=== PATIENT | female | born 1950 | race Caucasian/White ===

== ENCOUNTER 2016-06-25 17:41 | Emergency (ER) | payer MEDICARE, OTHER ==
[~2016-06-25 17:41] MED LIST: CHOL400T3 PO; CLON0.3T PO; CLONIDINE 0.3 MG PO; FENT1PAT11 TOPICAL; HYDR8TAB PO; KETAMINE NASAL; LEVO88TA3 PO; LOVA40TA PO; Lorazepam PO; MTH10T PO; MULT-1018 PO; NITR100 PO; PHEN-777 PO; SOMA350 PO
[2016-06-25 18:01] VITALS: BP 162/77; PULSE 47; RESP 20; O2SAT 100
--- NOTE | 2016-06-25 18:41 | ED.REPORT ---
HPI-General Illness Date of Service Jun 25, 2016 ED Provider: Tyshawn Rod PA-C [place] is a 65-year-old female with a history of chronic pain, complex regional pain syndrome, interstitial cystitis and anxiety who presents via EMS with chief complaint of bilateral leg pain which ascends up into her lower abdomen. She believes that the pain was started 2 weeks ago when her dentist used "the wrong anesthesia" during a dental procedure. She believes this exacerbated her complex regional pain syndrome. She describes pain primarily in her left leg which is associated with multicolored bumps that have resolved at presentation. She reports using methadone, lorazepam, ketamine, course of Toradol, hydromorphone and phenazopyridine for pain at home. States that she is out of her methadone. States that the pain is bad enough that she cannot walk downstairs to get into her car. History of a neurostimulator implanted in her lumbar spine in 2010 which is nonfunctional. Denies fever, DM, HIV, organ transplant, immunosuppression, recent surgery, recent infection and IV drug use. Denies bowel/bladder dysfunction and saddle anesthesia. Denies vomiting, diarrhea, urinary symptoms, chest pain, palpitations, difficulty breathing, shortness of breath, cough. Nursing Notes Stated Complaint: ABDOMINAL PAIN Chief Complaint: Female Abdominal Pain Nursing Notes Reviewed: Yes Allergies: Coded Allergies: pregabalin (Verified Allergy, Intermediate, Extrapyramidal Symptoms, ) words come out all jumbled Sulfa (Sulfonamide Antibiotics) (Verified Allergy, Unknown, 12/14/15) phenobarbital (Verified Adverse Reaction, Intermediate, 12/14/15) Scheduled Atenolol (Atenolol) 25 Mg Tablet 25 MG PO DAILY Pt holds if HR < 90 BPM or low BP Cephalexin (Keflex) 500 Mg Capsule 500 MG PO QID Cholecalciferol (Vitamin D3) (Vitamin D3) 400 Unit Tab.chew 400 UNIT PO DAILY Clonidine (Clonidine) 0.3 Mg Tablet 0.3 MG PO TID Estradiol (Estrace) 42.5 Gm Cream.appl 1 G VG 3x/week Fentanyl 100 mcg/hr Patch (Fentanyl 100 mcg/hr Patch) 1 Each Patch.td72 1 PATCH TOPICAL Q2DAY Levothyroxine (Synthroid) 88 Mcg Tablet 88 MCG PO QAM Lorazepam (Lorazepam) 2 Mg Tablet 2 MG PO QID 0400, 1000, 1600, 2200 Methadone (Methadone) 10 Mg Tab 10 MG PO QID Multivitamin (Multi Vitamin Daily) 1 Each Tablet 1 EACH PO DAILY Scheduled PRN Hydromorphone (Hydromorphone) 8 Mg Tablet 8 MG PO Q6H PRN PRN Pain Ketamine HCl (Ketalar) 100 Mg/1 Ml Vial 1-2 SPRAY NASAL [id number] PRN PRN For Pain NTE 32 puffs/24 hrs Magnesium Hydroxide (Pedia-Lax) 400 Mg Tab.chew 400 MG PO DAILY PRN PRN For Constipation General Time Seen by MD: 17:58 Chief Complaint Other (bilateral leg pain.) Past Medical History Past Medical History Notes: PCP Tristan Milan Past Medical History 1. Chronic pain syndrome with narcotic habituation. 2. Interstitial cystitis. 3. Complex regional pain syndrome. 4. Generalized anxiety disorder. 5. Hypothyroid, on replacement. Reports: Hypertension Past Surgical History cholecystectomy in June 2014. Left wrist surgery. Right shoulder surgery. Implant of spinal cord stimulator in July 2009. Right hip surgery June 2015 Reports: Cholecystectomy Smoking History Never Smoker Social History Alcohol Use: Denies alcohol use Drug Use: Denies drug use Other Social History: Occupation no work or school 01/2016 Ambulatory Status Independent Review of Systems General: Denies fever, chills, malaise. HEENT: Denies congestion, headache, sore throat. Respiratory: Denies dyspnea, cough, shortness of breath, wheezing. Cardiovascular: Denies chest pain, palpitations. Gastrointestinal: Admits abdominal pain. Denies vomiting, diarrhea. Genitourinary: Denies frequency, urgency, dysuria, hematuria. Otherwise as noted in HPI. Physical Exam General: Well appearing, well developed, well nourished, no acute distress. Head: Atraumatic, normocephalic. Eyes: No scleral icterus or injection. No discharge. Vision grossly intact. ENT: Voice clear, hearing grossly intact. Respiratory: Regular rate and rhythm. Breath sounds present, clear to auscultation and equal bilaterally. No respiratory distress. No increased work of breathing, speaks in complete sentences. Cardiovascular: Regular rate and rhythm, without murmur, gallop or rub. No pedal edema. Gastrointestinal: Abdomen flat and non-tender without guarding or rebound. Bowel sounds normoactive. Hips: Nontender, full range of motion. Knees: Nontender, full range of motion Legs: Strength and sensation grossly intact. No pitting edema, calves roughly equal in diameter, nontender. Feet: Skin is slightly lynette in appearance and appears tense. DP and PT pulses appreciated bilaterally. Brisk capillary refill. Skin: Warm and dry. Neurological: Grossly nonfocal. Psychological: Alert and oriented. Speech appropriate, linear and logical. Behavior appropriate. Vital Signs Vital Signs Date Time Temp Pulse Resp B/P Pulse Ox O2 Delivery O2 Flow Rate FiO2 06/25/16 20:34 36.6 49 14 180/78 98 Room Air 06/25/16 18:01 36.8 47 20 162/77 100 Room Air Initial VS: Reviewed, Vital signs abnormal (bradycardia) Interpretation & Diagnostics Lab Results Interpretation Result Diagram: 06/25/16191806/25/161918 Test 06/25/16 19:19 06/25/16 20:15 White Blood Count 10.3th/mm3 (3.8-10.1) Red Blood Count 4.79mil/mm3 (3.90-5.20) Hemoglobin 14.1g/dL (12.0-15.6) Hematocrit 42.0% (35.0-46.0) Mean Corpuscular Volume 87.7fL (81-100) Mean Corpuscular Hemoglobin 29.4pg (27.0-35.0) Mean Corpuscular Hemoglobin Concent 33.6% (32.0-37.0) Red Cell Distribution Width 13.4% (12.3-15.4) Platelet Count 268bil/L (150-400) Neutrophils (%) (Auto) 59.3% (40-74) Lymphocytes (%) (Auto) 26.5% (14-46) Monocytes (%) (Auto) 9.2% (4-12) Eosinophils (%) (Auto) 4.5% (0-5) Basophils (%) (Auto) 0.4% (0-3) Sodium Level 137mEq/L (134-144) Potassium Level 4.4mEq/L (3.5-5.2) Chloride Level 97mEq/L (97-108) Carbon Dioxide Level 27mmol/L (18-29) Blood Urea Nitrogen 11mg/dL (8-27) Creatinine 0.91mg/dL (0.57-1.00) Estimat Glomerular Filtration Rate 89mL/min (>59) Glucose Level 116mg/dL (60-99) Calcium Level 9.4mg/dL (8.5-10.1) Total Bilirubin 0.3mg/dL (0.0-1.2) Aspartate Amino Transf (AST/SGOT) 59U/L (0-50) Alanine Aminotransferase (ALT/SGPT) 105U/L (0-32) Alkaline Phosphatase 734U/L (25-165) Total Protein 7.3g/dL (6.4-8.4) Albumin 3.8g/dL (3.4-5.0) Hold Sebastian Top Tube Received (Received) Urine Color Yellow (YELLOW) Urine Appearance Cloudy (CLEAR,HAZY) Urine pH 8.5 (5.0-8.0) Urine Specific [place] 1.020 (1.003-1.035) Urine Protein 30mg/dL (NEG,TRACE) Urine Glucose (UA) Negativemg/dL (NEGATIVE) Urine Ketones Negativemg/dL (NEGATIVE) Urine Occult Blood Trace (NEGATIVE) Urine Nitrite Negative (NEGATIVE) Urine Bilirubin Negative (NEGATIVE) Urine Urobilinogen Normalmg/dL (NORMAL) Urine Leukocyte Esterase Moderate (NEGATIVE) Urine RBC 0-2/hpf (0-2) Urine WBC >50/hpf (0-5) Urine Epithelial Cells Moderate/hpf (NONE-MOD) Urine Crystals None seen (NONE SEEN) Urine Bacteria Few/hpf (NONE-FEW) Urine Hyaline Casts None/lpf (NONE) Urine Granular Casts None seen (NONE SEEN) Urine Waxy Casts None seen (NONE SEEN) Urine Red Blood Cell Casts None seen (NONE SEEN) Urine White Blood Cell Casts None seen (NONE SEEN) Urine Mucus None seen (None Seen) Urine Trichomonas None seen (NONE SEEN) Urine Yeast None (NONE SEEN) Urinalysis Comment None Urine Culture Reflexed Indicated Re-Eval/Medical Decision Med Decision/Clinical Course 64-year-old female with a history of complex regional pain syndrome presents with bilateral leg pain dressing to her abdomen. She reports that she is out of her methadone. Her pain is bad enough that she cannot walk downstairs and get into her car. History is reassuring this is unlikely to be an epidural abscess or subdural hematoma. No red flag symptoms of cauda equina syndrome. No symptoms of DVT. Physical examination is otherwise reassuring with no CVA tenderness or spinous process tenderness. Strength and sensation are intact in lower limbs. Patient ambulates at baseline, limited by pain in her feet rather than weakness. She does have mild lower abdominal tenderness without guarding or rebound. Urinalysis is suggestive of a urinary tract infection. I do not believe the pain in her legs is caused by immediately dangerous condition. The pain in her abdomen is likely due to her urinary tract infection and less likely due to ovarian torsion, ovarian cyst, PID. I believe she is stable and safe for discharge home. I provided an injection of IM ceftriaxone as well as a prescription for Keflex to be taken 4 times a day for one week. Advise primary care follow-up and provided emergent return precautions. She discussed this with the patient who understands and agrees with the plan. Discharge & Departure Primary Impression: Leg pain, bilateral Additional Impressions: Urinary tract infection Urinary tract infection type: acute cystitis Hematuria presence: without hematuria Qualified Code: N30.00 - Acute cystitis without hematuria Elevated blood pressure Disposition: Home Discharge Condition All VS Reviewed: Yes Condition: Stable Patient Instructions: Urinary Tract Infection in Women (ED) Additional Instructions: Evaluation for leg and abdominal pain in the emergency department. History and physical are reassuring that her leg pains unlikely to be due to a dangerous cause such as pinched nerves for infection and your spine. Her blood tests appear to be relatively normal for you, and her urinalysis shows a urinary tract infection. It does not appear this infection is progressed to her kidneys at this point. He will be given a shot of antibiotics in the emergency department tonight. I will also give a prescription for Keflex to be taken 4 times a day for the next week to treat the urinary tract infection. Follow-up with your primary care provider as soon as possible to get back on your pain medication regimen and discuss your high blood pressure. Return to emergency department for new or worsening symptoms including loss of bowel/bladder control, numbness between your legs, fever. Referrals: Tristan Milan MD (PCP) EDSupervising Provider for APC: Nona Lua MD copies to: Tristan Milan MD, Seth PA-C Jun 25, 2016 18:41
[2016-06-25] MEDS ORDERED: Ketorolac 30 mg/mL 2 mL Inj IM ONE (18:45)
[2016-06-25] MEDS ORDERED: LORA2TAB PO (18:58)
[2016-06-25] MEDS ORDERED: MAGN400T26 PO (19:00)
[2016-06-25] MEDS ORDERED: ATEN25TA PO (19:02)
[2016-06-25] MEDS ORDERED: ESTR42.52 VG (19:02)
[2016-06-25] MEDS ORDERED: [UNRECOGNIZED DRUG - CODE] NASAL (19:05)
[2016-06-25 19:26] LABS: BASOPHILS % (AUTO) 0.4 % (0-3); EOSINOPHILS % (AUTO) 4.5 % (0-5); MONOCYTES % (AUTO) 9.2 % (4-12); Mean Corpuscular Hemoglobin 29.4 pg (27.0-35.0); Mean Corpuscular Volume 87.7 fL (81-100); NEUTROPHILS % (AUTO) 59.3 % (40-74); Platelet Count 268 bil/L (150-400)
[2016-06-25 20:34] VITALS: BP 180/78; PULSE 49; RESP 14; O2SAT 98
[2016-06-25 20:37] LABS: APPEARANCE,URINE CLOUDY (CLEAR,HAZY); COLOR,URINE YELLOW (YELLOW); PH,URINE 8.5 (5.0-8.0)
[2016-06-25 20:38] LABS: OCCULT BLOOD,URINE TRACE (NEGATIVE); UROBILINOGEN,URINE NORMAL (NORMAL)
[2016-06-25] MEDS ORDERED: cefTRIAXone Inj 500 MG, Lidocaine PF 1% Inj 1 ML in Syringe 1 EACH IM ONE (20:55)
[2016-06-25] MEDS ORDERED: CEPH-512 PO (21:08)
[2016-06-25] MEDS ORDERED: CEFTRIAXONE IM ONE (21:30)
[2016-06-25] MEDS ORDERED: LIDOCAINE 1% IM ONE (21:30)
[2016-06-25 22:02] VITALS: BP 11/80; PULSE 68; RESP 20; O2SAT 98
[2016-06-25 22:12] VITALS: BP_SYST 11; BP_SYST 111; BP_DIAS 80; PULSE 68; RESP 20; O2SAT 98
== END 2016-06-25 22:13 | disposition home or self-care (01) ==
LOC: EDBD 17:41 → EDUNIT# 17:41 → SED 17:41
DX: M79.661 Pain in right lower leg (principal); M79.662 Pain in left lower leg; N30.00 Acute cystitis without hematuria; I10 Essential (primary) hypertension; E03.9 Hypothyroidism, unspecified; Z79.818 Long term (current) use of other agents affecting estrogen receptors and estrogen levels; Z88.2 Allergy status to sulfonamides; Z88.5 Allergy status to narcotic agent
CPT/HCPCS: 36415; 80053; 81000; 85025; 87086; 87088; 96372; 99284; J0696; J1885

== ENCOUNTER 2016-06-27 06:31 | Inpatient (IN) | payer MEDICARE, OTHER ==
[2016-06-27] VITALS (9 sets, daily range): BP systolic 90–183; BP diastolic 56–74; PULSE 43–98; RESP 12–16; O2SAT 95–100
[~2016-06-27] VITALS: Ht 167.6 cm; Wt 71.0 kg
--- NOTE | 2016-06-27 06:28 | ED.REPORT ---
HPI-General Illness Date of Service Jun 27, 2016 ED Provider: Ronnie Arnold DO 65 year old female with a history of complex regional pain syndrome with narcotic habituation presents to the ER via EMS due to acute on chronic bilateral lower extremity pain. Associated symptoms include frontal headache, and new onset abdominal pain. She denies bowel or urinary incontinence. Patient was seen here in the ER two days ago for leg pain and placed on Keflex for suspected UTI. History is limited due to patient's current mental status. Nursing Notes Stated Complaint: CHRONIC SEVERE PAIN Nursing Notes Reviewed: Yes Allergies: Coded Allergies: pregabalin (Verified Allergy, Intermediate, Extrapyramidal Symptoms, ) words come out all jumbled Sulfa (Sulfonamide Antibiotics) (Verified Allergy, Unknown, 06/27/16) phenobarbital (Verified Adverse Reaction, Intermediate, 12/14/15) Scheduled Atenolol (Atenolol) 25 Mg Tablet 25 MG PO DAILY Pt holds if HR < 90 BPM or low BP Cholecalciferol (Vitamin D3) (Vitamin D3) 400 Unit Tab.chew 400 UNIT PO DAILY Clonidine (Clonidine) 0.3 Mg Tablet 0.3 MG PO TID Estradiol (Estrace) 42.5 Gm Cream.appl 1 G VG 3x/week Fentanyl 100 mcg/hr Patch (Fentanyl 100 mcg/hr Patch) 1 Each Patch.td72 1 PATCH TOPICAL Q2DAY Levothyroxine (Synthroid) 88 Mcg Tablet 88 MCG PO QAM Methadone (Methadone) 10 Mg Tab 20 MG PO BID Multivitamin (Multi Vitamin Daily) 1 Each Tablet 1 EACH PO DAILY Scheduled PRN Hydromorphone (Hydromorphone) 8 Mg Tablet 8 MG PO TID PRN PRN Pain Ketamine HCl (Ketalar) 100 Mg/1 Ml Vial 1-2 SPRAY NASAL [id number] PRN PRN For Pain NTE 32 puffs/24 hrs Lorazepam (Lorazepam) 2 Mg Tablet 2 MG PO 3-4 times a day PRN PRN For Anxiety 0400, 1000, 1600, 2200 Magnesium Hydroxide (Rodgers' Milk of Magnesia) 311 Mg Tab.chew 311 MG PO PRN For Constipation General Time Seen by MD: 06:36 Chief Complaint Other (Bilateral Lower Extremity Pain) Hx Obtained From: Patient Arrived By: Ambulance Sudden in Onset?: No Symptom Duration: Constant Location: : Leg left: Leg right Quality: Painful Severity: Current: Moderate Severity: Maximum: Moderate Associated with: Reports: Abdominal pain, Headache Additional Notes: Denies Incontinence Similar Sx Previous: Yes Past Medical History Past Medical History Notes: PCP Tristan Milan Past Medical History 1. Chronic pain syndrome with narcotic habituation. 2. Interstitial cystitis. 3. Complex regional pain syndrome. 4. Generalized anxiety disorder. 5. Hypothyroid, on replacement. Reports: Hypertension Past Surgical History cholecystectomy in June 2014. Left wrist surgery. Right shoulder surgery. Implant of spinal cord stimulator in July 2009. Right hip surgery June 2015 Reports: Cholecystectomy Smoking History Never Smoker Social History Alcohol Use: Denies alcohol use Drug Use: Denies drug use Other Social History: Occupation no work or school 01/2016 Ambulatory Status Independent Review of Systems ROS is limited due to patient's mental status. Full Review of Systems GI: Reports: Abdominal pain Musculoskeletal: Reports: Extremity pain (Bilateral Lower) Neurologic: Reports: Confusion, Headache, Denies: Bladder dysfunction, Bowel dysfunction Complete sys rev & neg: except as marked. Physical Exam Vital Signs Vital Signs Date Time Temp Pulse Resp B/P Pulse Ox O2 Delivery O2 Flow Rate FiO2 06/27/16 12:47 36.9 92 16 120/56 99 Room Air 06/27/16 09:15 57 14 164/66 99 Room Air 06/27/16 07:39 37.4 56 16 183/74 100 Room Air 06/27/16 06:39 37.1 56 12 163/72 100 Room Air Initial VS: Reviewed Head / Eyes: Atraumatic, Normocephalic Neck: Supple, Non-tender, Full range of motion Respiratory: Breath sounds normal, Clear to auscultation, No respiratory distress Abdomen / GI: Soft, Non-tender, No guarding, No rebound, No distention Skin: Warm, Dry, No cyanosis General/Constitutional: Awake, Alert, Well developed Cardiovascular: Heart rate NL, Regular rhythm, Heart sounds NL, Cap refill not delayed, Peripheral circulation NL Lower Extremity / Pelvis / MS: Atraumatic, Full range of motion, No deformity, Neurologic intact, Vascular intact 2+ DP pulses bilaterally. Capillary refill <2 seconds. Neurologic: Speech NL Mental Status: Positive: Confused, Disoriented to person, Disoriented to place , Disoriented to time Speaking gibberish. Inappropriate responses to questions. NIH Stroke Scale Level of Consciousness: Alert and responsive (0) Ask Month & Age: Both questions right (0) Open/Close Eyes/Hand Meter/Relay Craftsman: Performs both tasks (0) Horizontal EO Movements: None (0) Visual Roberts: No visual loss (0) Facial Palsy: Normal symmetry (0) Right Arm Motor Drift (10s): No drift 10 sec (0) Left Arm Motor Drift (10s): No drift 10 sec (0) Right Leg Motor Drift (5s): No drift 5 sec (0) Left Leg Motor Drift (5s): No drift 5 sec (0) Limb Ataxia FNF/Heel-Malave: No ataxia (0) Sensation (Arms/Legs/Face): No sensory loss (0) Language Aphasia: Loss fluency ID matls (1) (Wernicke's Aphasia, word salad) Dysarthria: No dysarthria, normal (0) Extinction/Inattention: No exctinct/inattent (0) NIHSS Score: 1 Time NIHSS Performed: 08:58 Date NIHSS Performed: Jun 27, 2016 Interpretation & Diagnostics Lab Results Interpretation Result Diagram: 06/27/16 0720 06/27/16 0720 Test 06/27/16 07:20 06/27/16 07:24 White Blood Count 9.8th/mm3 (3.8-10.1) Red Blood Count 4.88mil/mm3 (3.90-5.20) Hemoglobin 14.3g/dL (12.0-15.6) Hematocrit 42.4% (35.0-46.0) Mean Corpuscular Volume 86.9fL (81-100) Mean Corpuscular Hemoglobin 29.3pg (27.0-35.0) Mean Corpuscular Hemoglobin Concent 33.7% (32.0-37.0) Red Cell Distribution Width 13.3% (12.3-15.4) Platelet Count 274bil/L (150-400) Neutrophils (%) (Auto) 69.1% (40-74) Lymphocytes (%) (Auto) 20.6% (14-46) Monocytes (%) (Auto) 6.3% (4-12) Eosinophils (%) (Auto) 3.6% (0-5) Basophils (%) (Auto) 0.3% (0-3) Prothrombin Time 10.6sec (8.1-12.5) Prothromb Time International Ratio 0.99ratio Sodium Level 137mEq/L (134-144) Potassium Level 4.7mEq/L (3.5-5.2) Chloride Level 96mEq/L (97-108) Carbon Dioxide Level 24mmol/L (18-29) Blood Urea Nitrogen 18mg/dL (8-27) Creatinine 0.88mg/dL (0.57-1.00) Estimat Glomerular Filtration Rate 93mL/min (>59) Glucose Level 114mg/dL (60-99) Lactic Acid Level 1.6mmol/L (0.4-2.0) Calcium Level 9.9mg/dL (8.5-10.1) Magnesium Level 1.7mg/dL (1.6-2.6) Total Bilirubin 0.4mg/dL (0.0-1.2) Aspartate Amino Transf (AST/SGOT) 46U/L (0-50) Alanine Aminotransferase (ALT/SGPT) 81U/L (0-32) Alkaline Phosphatase 762U/L (25-165) Total Protein 7.9g/dL (6.4-8.4) Albumin 4.2g/dL (3.4-5.0) Lipase 16U/L (13-60) Alcohols < 10mg/dL (0-10) Urine Color Yellow (YELLOW) Urine Appearance Turbid (CLEAR,HAZY) Urine pH 7.0 (5.0-8.0) Urine Specific [place] 1.020 (1.003-1.035) Urine Protein 30mg/dL (NEG,TRACE) Urine Glucose (UA) Negativemg/dL (NEGATIVE) Urine Ketones Negativemg/dL (NEGATIVE) Urine Occult Blood Negative (NEGATIVE) Urine Nitrite Negative (NEGATIVE) Urine Bilirubin Negative (NEGATIVE) Urine Urobilinogen Normalmg/dL (NORMAL) Urine Leukocyte Esterase Small (NEGATIVE) Urine RBC 3-10/hpf (0-2) Urine WBC 0-5/hpf (0-5) Urine Epithelial Cells Many/hpf (NONE-MOD) Urine Crystals None seen (NONE SEEN) Urine Bacteria Many/hpf (NONE-FEW) Urine Hyaline Casts None/lpf (NONE) Urine Granular Casts None seen (NONE SEEN) Urine Waxy Casts None seen (NONE SEEN) Urine Red Blood Cell Casts None seen (NONE SEEN) Urine White Blood Cell Casts None seen (NONE SEEN) Urine Mucus None seen (None Seen) Urine Trichomonas None seen (NONE SEEN) Urine Yeast None (NONE SEEN) Urinalysis Comment None Urine Culture Reflexed Indicated ECG Interpretation ECG Interpretation: Sinus rhythm, rate 60 Time: 07:31 Interpreted by: ED physician CT Head Interpretation IMPRESSION: 1. No acute intracranial process. 2. Mild atrophy and chronic microvascular ischemic changes. Dictated by: Pamela Palomares M.D. on 06/27/2016 at 12:24 Approved by: Pamela Palomares M.D. on 06/27/2016 at 12:24 Study: Head CT no contrast Interpretation / Wet Read by: Interpret - Radiologist CT Abd / Pelvis Interpretation IMPRESSION: 1. No acute process. No explanation for lower abdominal pain. 2. Appendix not seen. No evidence of appendicitis. Dictated by: Marina Vazquez M.D. on 06/27/2016 at 8:31 Approved by: Marina Vazquez M.D. on 06/27/2016 at 8:41 Study type: Abdominal CT IV contrast, Abdom CT oral contrast Interpretation / Wet Read by: Interpret - Radiologist Re-Eval/Medical Decision Med Decision/Clinical Course several days of wernickes aphasia of unclear etiology. Doubt infectious pathology. Question if this is polypharmacy or subacute stroke. We will plan to admit for observation and better clinical delineation of etiology. Source of Hx: Old records Time of Eval: 08:34 Patient Status: Pain improved Re-Evaluation/Progress Note: Patient is resting comfortably. Time of Eval: 08:58 Re-Evaluation/Progress Note: Completed NIH Stroke Scale. Time of Eval: 12:34 Re-Evaluation/Progress Note: Patient continues to have Wernicke's aphasia. Consultation #1: Call Returned at: 09:11 Note: I called patient's , Sherif Pérez, regarding why he sent her to the ER today. He states that the patient has been "using strange words that had no meaning", and that she has appeared confused for several days, worsening today. reports that the patient was recently started on a course of Keflex. He states that the patient continues to insist that "he's hurting her" when he is nowhere near her, and denies hitting his . Updated him on the patient's case and plan of care. Consultation #2: Referral / Consult Name: Della Finley DO Consulted With: Hospitalist Call Returned at: 12:49 High Lighter: Agrees with eval, Agrees with plan, Accepts admit Counseled Regarding: Diagnosis, Lab results, Need for admission Discharge & Departure Primary Impression: Altered level of consciousness Disposition: ADMITTED TO HOSPITAL Discharge Condition All VS Reviewed: Yes Condition: Stable Referrals: Tristan Milan MD (PCP) [place] Attestation Portions of this note were transcribed by Zaire Mathis. I, Dr. Arnold, personally performed the history, physical exam and medical decision-making; I reviewed and confirmed the accuracy of the information in the transcribed note. Signed by: Liseth Hanson, 06/27/2016 and 12:50 copies to: Tristan Milan MD, Timothy S DO Jun 27, 2016 06:28 ZAIRE MATHIS Jun 27, 2016 06:45
[~2016-06-27 06:31] MED LIST changes: +ATEN25TA PO; +CEPH-512 PO; -CLONIDINE 0.3 MG PO; +ESTR42.52 VG; -KETAMINE NASAL; +LORA2TAB PO; -LOVA40TA PO; -Lorazepam PO; +MAGN400T26 PO; -NITR100 PO; -PHEN-777 PO; -SOMA350 PO; +[UNRECOGNIZED DRUG - CODE] NASAL
[2016-06-27] MEDS ORDERED: 0.9% Sodium Chloride 1,000 ML IV ONE ×2 (06:59→17:30)
[2016-06-27] MEDS ORDERED: Ondansetron 2 mg/mL 2 mL Inj IVPUSH PRN ×2 (07:00→13:10)
[2016-06-27] MEDS ORDERED: Ketamine 10 mg/mL 20 mL Inj IV ONE (07:05)
[2016-06-27 07:33] LABS: BASOPHILS % (AUTO) 0.3 % (0-3); EOSINOPHILS % (AUTO) 3.6 % (0-5); MONOCYTES % (AUTO) 6.3 % (4-12); Mean Corpuscular Hemoglobin 29.3 pg (27.0-35.0); Mean Corpuscular Volume 86.9 fL (81-100); NEUTROPHILS % (AUTO) 69.1 % (40-74); Platelet Count 274 bil/L (150-400)
[2016-06-27] MEDS ORDERED: MAGN311T5 PO (07:37)
[2016-06-27 07:49] LABS: APPEARANCE,URINE TURBID (CLEAR,HAZY); COLOR,URINE YELLOW (YELLOW); OCCULT BLOOD,URINE NEGATIVE (NEGATIVE); UROBILINOGEN,URINE NORMAL (NORMAL)
[2016-06-27 07:59] LABS: Magnesium 1.7 mg/dL (1.6-2.6)
--- NOTE | 2016-06-27 08:43 | DRSVH ---
PROCEDURE: CT ABDOMEN AND PELVIS WITH CONTRAST ([id number]) INDICATIONS: lower abd pain TECHNIQUE: After the administration of oral and intravenous contrast, 5 mm thick sections acquired from the diap hragms to the symphysis. 5 mm thick coronal and sagittal reformats were performed. For radiation do se reduction, the following was used: automated exposure control, adjustment of mA and/or kV accordi ng to patient size. COMPARISON: [facility], CT, CT ABD PELVIS W CON, 04/25/2015, 20:48. [facility] al, CT, CT ABD PELVIS W CON, 11/11/2014, 17:34. FINDINGS: Image quality: Excellent. ABDOMEN: Lung bases: Lung bases are clear. Heart size is normal. Solid organs: Liver and spleen are normal in size and enhancement. Gallbladder is surgically absent . Biliary system is non-dilated. Pancreas enhances normally. No adrenal nodules. Kidneys are norm al in size and enhancement, without hydronephrosis. Peritoneum and bowel: Stomach, small bowel, and colon loops are normal in caliber and wall thickness . No free fluid or air. Appendix not seen. No evidence of appendicitis. Nodes and vessels: No retroperitoneal or mesenteric adenopathy. Aorta and inferior vena cava are no rmal in caliber. Miscellaneous: No ventral hernias. PELVIS: Genitourinary: The bladder is decompressed. Miscellaneous: No inguinal hernias or adenopathy. Bones: No suspicious bony lesions. ORIF of the right femoral neck has been performed. No acute verte bral body compression fractures. Moderate chronic T12 compression fracture. IMPRESSION: 1. No acute process. No explanation for lower abdominal pain. 2. Appendix not seen. No evidence of appendicitis. Dictated by: Marina Vazquez M.D. on 06/27/2016 at 8:31 Approved by: Marina Vazquez M.D. on 06/27/2016 at 8:41
--- NOTE | 2016-06-27 12:25 | DRSVH ---
PROCEDURE: CT BRAIN WITHOUT CONTRAST ([id number]) INDICATIONS: confusion TECHNIQUE: Noncontrast 4.5 mm thick angled axial sections acquired from the foramen magnum to the vertex, with c oronal reformats. COMPARISON: None. FINDINGS: Image quality: Excellent. CSF spaces: Basal cisterns are patent. No extra-axial fluid collections. The ventricles are symmet gabbie in size and shape. Brain: No intracranial bleeds or masses. There is cerebral volume loss for age, with resultant vent ricular and sulcal prominence. There are periventricular and deep white matter chronic small vessel ischemic changes. There is intracranial internal carotid artery atherosclerosis. Skull and face: Calvarium and visualized facial bones appear intact, without suspicious lesions. Sinuses: Visualized sinuses and mastoids are clear. IMPRESSION: 1. No acute intracranial process. 2. Mild atrophy and chronic microvascular ischemic changes. Dictated by: Pamela Palomares M.D. on 06/27/2016 at 12:24 Approved by: Pamela Palomares M.D. on 06/27/2016 at 12:24
[2016-06-27] MEDS ORDERED: Alum-Mag Hydrox-Simeth 30 mL Suspension PO PRN ×2 (13:10→13:45)
[2016-06-27] MEDS ORDERED: Polyethylene Glycol (PEG) 17 Gm Powder PO PRN (13:45)
[2016-06-27 13:57] LABS: INR 0.99 ratio
--- NOTE | 2016-06-27 14:10 | NUR ---
ADMIT Patient received from the ED via a wheelchair. Patient is alert and oriented to person only. Does not follow all instructions. Equal hand knitting supervisor. Via FELDT scale patients pain level is 0/10. Denies nausea. No emesis noted. Denies SOB. Coleman alarm placed on for safety. Patient placed on tele. Care continues.
[2016-06-27] MEDS: 0.9% Sodium Chloride 1,000 ML IV SCH ×2 (14:21→23:09)
--- NOTE | 2016-06-27 15:30 | NUR ---
MD NOTIFICATION Patient is on remote tele. Per director television news patient is on sinus emerald; HR-40's. SBP-120's. No complaints voiced at this time. Dr. Finley made aware via cookpaging. Will continue to monitor.
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
--- NOTE | 2016-06-27 16:04 | NUR ---
Evaluation completed. Please go to "Notes" then click on "Assessments and Notes" (bottom left corner of screen). Then select appropriate discipline tab on top of screen.
--- NOTE | 2016-06-27 17:27 | DRSVH ---
[facility] [address] [place] [address] Echocardiogram Report Name: ROXANNA SINGH EStudy Date: 06/27/2016 Height: 67 in Hospital Exam Location: [facility] Weight: 135 lb Gender: Female BSA: 1.7 m2 : 1950 Age: 65 yrs BP: 120/56 m mHg Reason For Study: TIA Performed By: Soumya Neri Referring Physician: HOSPITALIST [facility] Interpretation Summary The left ventricle is normal in size. The ejection fraction is estimated to be 65-70%. There is no LV thrombus. The right ventricle is normal in size, thickness and function. There is mild mitral regurgitation. There is mild to moderate aortic regurgitation. There is mild tricuspid regurgitation. The right ventricular systolic pressure is estimated at 37 mmHg assuming a right atrial pressure of 3 mm Hg. Procedure: A two-dimensional transthoracic echocardiogram with color flow and Doppler was performed. The study quality was technically good. Todays echo is compared with images from an outside facility dated 07-04-14. The patient was in normal sinus rhythm during the exam. The heart rate ranged between 45-63 bpm during the study. Left Ventricle: The left ventricle is normal in size. There is normal left ventricular wall thickness. There is no thrombus. The ejection fraction is estimated to be 65-70%. There are no focal wall motion abnormalities. Spectral Doppler of the mitral valve shows a normal E/A wave ratio. The E/E' ratio is abnormal. Right Ventricle: The right ventricle is normal in size, thickness and function. Atria: The left atrial size is normal. Right atrial size is normal. The interatrial septum is intact with no evidence for an atrial septal defect. Mitral Valve: There is mild mitral annular calcification. The mitral valve leaflets are slightly calcified. There is mild mitral regurgitation. Aortic Valve: The aortic valve is trileaflet. The aortic valve opens well. The aortic valve is slightly calcified. There is mild to moderate aortic regurgitation. Tricuspid Valve: The tricuspid valve is normal. There is mild tricuspid regurgitation. The right ventricular systolic pressure is estimated at 37 mmHg assuming a right atrial pressure of 3 mm Hg. Pulmonic Valve: The pulmonic valve is not well seen, but is grossly normal. There is trace pulmonic regurgitation. Great Vessels: The aortic root is normal size. There is aortic root sclerosis/calcification. The aortic arch is normal in size. The IVC is of normal diameter and collapses greater than 50% with a sniff. This suggests a low right atrial pressure of 3 mm Hg. Pericardium/ Pleura There is no pericardial effusion. There is no pleural effusion. MMode/2D Measurements & Calculations LVIDd: 4.2 cm LA dimension: 3.2 cm RA long axis Ao root diam LVIDs: 2.3 cm FS: 44.7 % LA A2 area: 18.6 cm RA area Aortic Jxn: 2.3 cm IVSd: 0.68 cm LA A4 area: 17.8 cm Ao Arch Diam (Prox LVPWd: 0.75 cm LA length (vol) : 13.6 cm Trans): 2.5 cm RA vol LA vol: 58.5 ml : 35.0 ml LA vol index RA : 20.5 mm/ RVDd major IVC diam: 1.8 cm : 4.8 cm LV phan. diameter/BSA LV sys. diameter/BSA RVD1 (basal) RVD2 (mid): 2.5 cm (cm/m^2): 2.5 (cm/m^2): 1.4 Doppler Measurements & Calculations Ao V2 max MV E max kelvin MV E/A: 1.1 TR max kelvin : 141.0 cm/sec : 78.3 cm/sec Med Peak E' Kelvin : 292.5 cm/sec Ao max P.0 mmHg MV A max kelvin TR max PG Ao mean P.7 mmH.4 cm/sec E/E' med: 12.8 : 34.2 mmHg LVOT Max Kelvin MV P1/2t: 108.6 msecLat Peak E' Kelvin PA Accel Time : 86.2 cm/sec : 0.15 sec sev ratio: 0.75 E/E' lat: 14.3 AI P1/2t: 754.0 msec E/e' average: 13.6 AI dec slope MV A dur: 0.13 sec : 168.8 cm/s2c MV dec time MV P1/2t max kelvin Ao V2 mean LV V1 max PG : 0.36 sec : 88.8 cm/sec Ao V2 VTI: 34.7 cm LV V1 VTI: 25.9 cm MVA(P1/2t): 2.0 cm2 Reading Physician:JALEN
--- NOTE | 2016-06-27 17:29 | NUR ---
HR/MD NOTIFICATION Per quality technician patients HR dropped X 2 to the 30's. HR is in the 40's at this time. Patient is sinus emerald with HR in the 40's. No ectopies. No complaints voiced at this time. No change in mentation. Dr. Finley was made aware. New orders for IV NS 1000 X 1 bolus received. NS infused at this time. Will continue to monitor. Fentanyl patched d/cd by Nadia Delatorre RN. Addendum: 06/27/16 at 1933 by FILOMENA DU RN HR HR-50-60's at this time.
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
[2016-06-28] VITALS (8 sets, daily range): BP systolic 107–171; BP diastolic 69–81; PULSE 50–73; RESP 16–20; O2SAT 98–100
[2016-06-28] MEDS: 0.9% Sodium Chloride 1,000 ML IV SCH ×2 (02:18→22:15)
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
[2016-06-28 08:17] LABS: Mean Corpuscular Hemoglobin 29.1 pg (27.0-35.0); Mean Corpuscular Volume 88.5 fL (81-100)
--- NOTE | 2016-06-28 08:48 | DRSVH ---
PROCEDURE: CT ANGIO HEAD AND NECK (P) INDICATIONS: Stroke/TIA TECHNIQUE: Pre-contrast 4.5 mm thick sections acquired from the foramen magnum to the vertex. After the adminis tration of intravenous contrast, 1 mm thick sections acquired from the aortic arch through the [place]. Post-contrast 4.5 mm thick sections then re-acquired from the foramen magnum to the vert ex. 3-dimensional djrwxwx-auutyjsgy-lgoztznxne (MIP) and/or volume rendering reformats were acquired of the central intracranial vasculature and neck separately. For radiation dose reduction, the foll owing was used: automated exposure control, adjustment of mA and/or kV according to patient size. COMPARISON: None. FINDINGS: Image quality: Excellent. BRAIN: CSF spaces: Ventricles are normal in size and shape. Basal cisterns are patent. No extra-axial flu id collections. Brain: No midline shift. No intracranial bleeds or masses. Rodriguez-white matter interface appears int act. Skull and face: Calvarium and facial bones appear intact, without suspicious lesions. Orbits appear normal. Sinuses: Sinuses and mastoids are clear. HEAD CT ANGIOGRAPHY: Anterior circulation: Intracranial internal carotid arteries are normal in size and flow. The flow within the paired anterior cerebral arteries is normal and symmetric. The flow within the middle cer ebral arteries is normal and symmetric. The anterior communicating artery is seen. No aneurysms are seen. Posterior circulation: Visualized portions of the vertebral arteries demonstrate normal caliber, and join to form a normal appearing basilar artery. Flow within the posterior cerebral arteries is norm al and symmetric. No aneurysms are seen. NECK CT ANGIOGRAPHY: Carotid system: The great vessels demonstrate a conventional anatomy as they arise from the aortic a rch. The origins of the common carotid arteries appear patent. The common carotid arteries demonstr ate normal caliber and courses. The bifurcation regions are both widely patent. The internal caroti d arteries demonstrate normal calibers and courses. Posterior circulation: The origins of the vertebral arteries both appear widely patent. The more ceballos perior extracranial portions of both vertebral arteries also demonstrate normal courses and calibers. They join to form a normal appearing basilar artery. Soft tissues: Visualized neck soft tissues demonstrate no suspicious abnormalities. Bones: No suspicious bony lesions. Visualized cervical spine appears normally aligned. IMPRESSION: 1. No significant stenosis, nor thrombosis involving the vasculature of the head and neck. Dictated by: Marina Vazquez M.D. on 06/28/2016 at 8:43 Approved by: Marina Vazquez M.D. on 06/28/2016 at 8:47
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
--- NOTE | 2016-06-28 09:45 | NUR ---
SPINAL CORD STIMULATOR INFO: [employer] placed 06/14/10; Model: SC 1110-02; SERIAL NO.: [id number]; ID NO. [id number]. Addendum: 06/28/16 at 1313 by FILOMENA DU RN MRI Dr. Finley made aware RE: MRI being cancelled due to her stimulator.
--- NOTE | 2016-06-28 11:08 | NUR ---
Evaluation completed. Please go to "Notes" then click on "Assessments and Notes" (bottom left corner of screen). Then select appropriate discipline tab on top of screen.
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
--- NOTE | 2016-06-28 14:36 | NUR ---
ADAM explained and signed. Copy of ADMA and Medicare self administered medications information given to patient.
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
[2016-06-28] MEDS: Ondansetron 2 mg/mL 2 mL Inj IV PRN (17:44)
--- NOTE | 2016-06-28 19:06 | NUR ---
MENTATION/ACTIVITY Patient is alert and oriented to person, place and time. Answers questions appropriately. Via FELDT scale patients pain level is 0/10. She has not been complaining of pain. She complained of nausea. No emesis noted. Zofran 4 mg IVP administered. Patient stated that her nausea is a little better. Encouraged patient to increase oral intake. She has been able to ambulate in the hallway with SBA and the FWW. Patient complained of dizziness. SBP-140's. She is on remote tele. Per telephony engineer patient is on sinus rhythm at 60's at this time. US will be done tonight. Tolerated activity well. [employer] alarm is on for safety. Care endorsed to incoming RN. Addendum: 06/28/16 at 1914 by FILOMENA DU RN NAUSEA IV restarted RE: Complaints of nausea and poor PO intake. Patient is agreeable to this.
--- NOTE | 2016-06-28 19:27 | NUR ---
assumed care at 1530. Addendum: 06/28/16 at 1928 by YUDITH AREVALO CNA Amended: Links added.
--- NOTE | 2016-06-28 20:22 | DRSVH ---
PROCEDURE: US BILATERAL DUPLEX DOPPLER IMAGING OF THE CAROTIDS ([id number]) INDICATIONS: altered mental status TECHNIQUE: Color and pulse Doppler interrogation was performed of both carotid systems, with image documentation and velocity measurements. COMPARISON: None. FINDINGS: All stenosis calculations are based on NASCET criteria. Right side: Brachial blood pressure: 144/77 mm Hg. Common Carotid Artery(Distal) PSV: 87.30 cm/s Internal Carotid Artery PSV- Proximal: 71.70 cm/s Mid-lon.40 cm/s Distal: 95.40 cm/s EDV - Proximal: 26.60 cm/s Mid-lon.30 cm/s Distal: 35.30 cm/s External Carotid Artery(Proximal) PSV: 83.30 cm/s ICA/CCA PSV ratio: 1.09 Rodriguez scale imaging description: Calcified plaques at the bifurcation Percent internal carotid artery stenosis: Less than 50%. Vertebral artery: Flow direction is antegrade. Left side: Brachial blood pressure: n.a.. Common Carotid Artery(Distal) PSV: 101.20 cm/s Internal Carotid Artery PSV - Proximal: 47.70 cm/s Mid-lon.90 cm/s Distal: 92.50 cm/s EDV - Proximal: 19.40 cm/s Mid-lon cm/s Distal: 30.30 cm/s External Carotid Artery(Proximal) PSV: 70 cm/s ICA/CCA PSV ratio: 0.91 Rodriguez scale imaging description: Calcified plaques at the bifurcation Percent internal carotid artery stenosis: Less than 50%. Vertebral artery: Flow direction is antegrade. IMPRESSION: Less than 50% internal carotid artery stenosis bilaterally Dictated by: Ubaldo Lewis M.D. on 06/28/2016 at 20:18 Approved by: Ubaldo Lewis M.D. on 06/28/2016 at 20:20
--- NOTE | 2016-06-28 21:41 | NUR ---
Nausea/Meds Patient c/o nausea still being present. Refusing offer for anti-emetic at this time, stating, "wanting to give it a little bit of time." PO meds refused by patient r/t nausea at this time. Addendum: 06/29/16 at 0256 by BRADLEY AVITIA RN Patient finally agreeable to Zofran IVP around 0200. Continued to refused PO medications upon rechecks. All PO medications held this shift. Received Toradol 15mg IVP as patient has been unable to take scheduled Tylenol for pain management.
[2016-06-29] VITALS (8 sets, daily range): BP systolic 132–184; BP diastolic 63–96; PULSE 67–120; RESP 16–24; O2SAT 95–100
[2016-06-29] MEDS: Ondansetron 2 mg/mL 2 mL Inj IV PRN ×2 (01:53→08:39)
[2016-06-29] MEDS: Ketorolac 15 mg/mL Inj IVPUSH PRN ×3 (01:54→22:02)
[2016-06-29 07:01] LABS: Mean Corpuscular Hemoglobin 29.5 pg (27.0-35.0); Mean Corpuscular Volume 88.2 fL (81-100)
[2016-06-29] MEDS: 0.9% Sodium Chloride 1,000 ML IV SCH ×2 (08:42→17:27)
[2016-06-29] MEDS ORDERED: LORazepam 0.5 mg Tablet PO PRN (09:00)
[2016-06-29] MEDS ORDERED: KCl 20 mEq/100 mL(CENTRAL) 20 MEQ in IV Premix 1 EACH IV ONE (09:50)
[2016-06-29] MEDS ORDERED: ProchlorPERazine 5 mg/mL 2 mL Inj IVPUSH ONE (09:50)
[2016-06-29] MEDS ORDERED: KCl 20 mEq/250 mL D5W (Peripheral Line) IV ONE ×2 (10:15)
--- NOTE | 2016-06-29 11:44 | NUR ---
Confused/pain/IV/Vomiting Pt c/o nausea and later vomiting intermittently while in bed. Appears too weak to roll over, vomitus seen over pt. IV NS infusing as pt pulled out IV and tele leads off. When asked why, stated "I don't know" otherwise appears alert and oriented. Overall tremors noted. IV Zofran ineffective. Primary RN requested another form of meds from MD. IV ativan also administered. IV potassium infusing d/t low #. Order recd and administered. Will continue to monitor. Tolerating IVF well now.
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
--- NOTE | 2016-06-29 14:19 | NUR ---
Inpatient status effective today. [facility] signed
--- NOTE | 2016-06-29 17:42 | NUR ---
EMESIS Pt had coffee ground emesis onto the floor. Dr. Finley in to witness emesis. ordered for stat H/H. Care conts
--- NOTE | 2016-06-29 18:52 | NUR ---
Emesis Pt had emesis x4 times today, none were measurable due to pt not using the emesis bag. Addendum: 06/29/16 at 1853 by MAK GALLOWAY CNA Amended: Links added.
[2016-06-30] VITALS (17 sets, daily range): BP systolic 115–183; BP diastolic 72–100; PULSE 79–120; RESP 16–32; O2SAT 93–99
[2016-06-30] MEDS: Ondansetron 2 mg/mL 2 mL Inj IV PRN ×3 (01:51→21:54)
[2016-06-30 05:07] LABS: Mean Corpuscular Hemoglobin 29.3 pg (27.0-35.0); Mean Corpuscular Volume 87.4 fL (81-100)
--- NOTE | 2016-06-30 05:47 | NUR ---
Pain No emesis or bowel movement this shift. PRN given for nausea prevention and pain. Monitor CIWA score- pt reports hot/cold flashes, notable tremors. No chest pain or shortness of breath. Clear liquid diet tolerated this shift. Monitor WBCs. Care continues
[2016-06-30] MEDS: 0.9% Sodium Chloride 1,000 ML IV SCH (07:50)
[2016-06-30] MEDS ORDERED: cefTRIAXone Inj 2,000 MG in Dextrose 5% Minibag Plus 50 ML IV SCH (09:30)
--- NOTE | 2016-06-30 11:18 | NUR ---
Tele/CIWA mentation technician biological health reports 5 beats Vtach at 09:08. I was in room with pt, asymptomatic. MD aware, no new orders. Care ongoing. CIWA 7. Alert and oriented x3 with flat affect. Cooperative with care.
--- NOTE | 2016-06-30 11:35 | NUR ---
Social Work- Continued Discharge Planning Data: EMR reviewed. Pt is on day 1 of inpatient hospitalization for altered level of consciousness per H&P. Pt is not medically stable, anticipate multiple more days. Pt is positive for CDiff. Pt currently experiencing withdrawal symptoms. PT and OT recommending home. Pt to discharge to brother's home with brother to transport via POV. No anticipated discharge needs. SW will continue to follow. Assessment: [place] who is independent [place] base. Plan: Pt to discharge to brother's home with brother to transport via POV. No anticipated discharge needs. SW will continue to follow. MALIK Bran
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
[2016-06-30 12:45] LABS: BASOPHILS % (AUTO) 0.1 % (0-3); EOSINOPHILS % (AUTO) 0 % (0-5); MONOCYTES % (AUTO) 6.5 % (4-12); Mean Corpuscular Hemoglobin 29.7 pg (27.0-35.0); Mean Corpuscular Volume 87.3 fL (81-100); NEUTROPHILS % (AUTO) 85.6 % (40-74); Platelet Count 269 bil/L (150-400)
[2016-06-30 13:24] LABS: APPEARANCE,URINE HAZY (CLEAR,HAZY); COLOR,URINE YELLOW (YELLOW); OCCULT BLOOD,URINE MODERATE (NEGATIVE); UROBILINOGEN,URINE NORMAL (NORMAL)
--- NOTE | 2016-06-30 13:33 | DRSVH ---
PROCEDURE: X-RAY CHEST ONE VIEW, PORTABLE ([id number]) INDICATIONS: Leukocytosis TECHNIQUE: One view of the chest was acquired. COMPARISON: [facility], CR, XR CHEST 1VW (PORTABLE), 06/24/2015, 13:59. FINDINGS: Surgical changes and devices: None. Lungs and pleura: Right lower lobe infiltrates suspicious for developing pneumonia. No pleural effus ions or pneumothorax. Mediastinum: Mediastinal contours appear normal. Heart size is normal. Bones and chest wall: No suspicious bony lesions. Overlying soft tissues appear unremarkable. IMPRESSION: Suspect developing right lower lobe pneumonia. Dictated by: Ubaldo Lewis M.D. on 06/30/2016 at 13:29 Approved by: Ubaldo Lewis M.D. on 06/30/2016 at 13:31
[2016-06-30] MEDS: Vancomycin 100 mg/mL Oral Solution PO SCH ×3 (14:00→21:23)
[2016-06-30] MEDS ORDERED: Vancomycin 125 mg Oral Capsule PO SCH (14:30)
[2016-06-30] MEDS: levoFLOXacin Inj 750 MG in IV Premix 1 EACH IV SCH (15:29)
[2016-06-30] MEDS: metroNIDAZOLE Inj 500 MG in IV Premix 1 EACH IV SCH (17:05)
--- NOTE | 2016-06-30 18:12 | NUR ---
WBC/VS Critically high WBC. UA and chest xray done. IVF and antibiotics admin as ordered. 16:55 pt suddenly became tachycardic. BP decreasing. See VS record. Pt not responding to verbal stimuli, minimal response to sternal rub. CIWA 5. MD aware, orders to increase IVF and will assess. BP held steady and pt did respond, opening eyes and speaking. Continue to monitor VS and admin IVF and antibiotics as ordered. Md assessed pt at bedside, heartrate was down to 80s-90s and BP stable. Continue to monitor closely.
[2016-06-30] MEDS: Ketorolac 15 mg/mL Inj IVPUSH PRN (21:54)
[2016-07-01] VITALS (8 sets, daily range): BP systolic 139–162; BP diastolic 64–104; PULSE 74–117; RESP 16; O2SAT 97–99
[2016-07-01] MEDS: metroNIDAZOLE Inj 500 MG in IV Premix 1 EACH IV SCH ×2 (01:09→07:41)
[2016-07-01] MEDS: Ondansetron 2 mg/mL 2 mL Inj IV PRN (03:40)
[2016-07-01] MEDS: Vancomycin 100 mg/mL Oral Solution PO SCH ×2 (04:21→09:03)
[2016-07-01 05:16] LABS: Mean Corpuscular Hemoglobin 29.2 pg (27.0-35.0); Mean Corpuscular Volume 86.8 fL (81-100)
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
--- NOTE | 2016-07-01 06:18 | NUR ---
CIWA Scoring CIWA for withdrawls/benzo dependency. Nausea consistant through shift, zofran given before PO intake and meds. No emesis reported. Clear liquids and soda crackers tolerated this shift. On Tele, one episode of Vtach following a 5 second unresponsive period. Pt Alert and oriented immediately after, she does not recall feeling disoriented or dizzy, generally withdrawn and lethargic as has been her baseline. HR irregular and occasionally Tachy 110s. BM sent to check for CDIFF. WBC dropped from 30.9 to 20.9. Care continues
--- NOTE | 2016-07-01 08:49 | NUR ---
gave verbal consent to [facility] [id number]
[2016-07-01] MEDS: levoFLOXacin Inj 750 MG in IV Premix 1 EACH IV SCH (09:00)
--- NOTE | 2016-07-01 09:46 | NUR ---
Fent patch/MVI Found 100mcg Fentanyl patch on pt under breast. She stated it was from home, placed last Friday. Removed. Refuses to take multivitamin, states they make her "sick." aware of all of above.
--- NOTE | 2016-07-01 14:32 | NUR ---
NUTRITION ASSESSMENT: ASSESS: 65YO F admit with aphagia, difficulty finding words, leukocytosis of unknown source, encephalopathy-polypharmacy(resolved)-2/2 narcotic withdrawal. Pt c/o nausea. Pt ordered dysphagia mechanical diet, notes state pt was cleared by ST for mechanical soft diet in ER, however no ST eval ordered or ST notes. Spoke with MD (Jacqueline) to order ST eval for appropriate diet texture for pt. PMHX:COPD,HTN DIET: Dysphagia Mechanical. PO refusal-25% LABS: A1c 6.3, Alb 3.4, Glu 118 MEDS: Reviewed GI: 3BM 06/29. Diarrhea improved, nausea remains WEIGHT: 69.7; 70.4kg (admit) BMI: 24.8 EST.NEEDS: 4399-3904 kcal: 70-85g NUTRITION DIAGNOSIS: (1) Potential Chew/swallowing difficulty related to altered mental status on admit as evidenced by modified diet texture. INTERVENTION: (1) Spoke with MD/RN, will await ST eval/recommendations for diet texture. MONITOR/EVALUATE: PO intake, lab values, texture tolerance. F/U per moderate risk.
--- NOTE | 2016-07-01 17:08 | NUR ---
Activity Alert and oriented x3 today. CIWA scores 2-7. Up to bedside commode one time with FWW and 1 person assist. Pt reluctant to get OOB despite education. Refused to sit in chair, and 2x refused to get up to BSC, stating either that she was dizzy or shaky. VS stable today. Continue to encourage increasing mobility. Good bed mobility, assists with bedpan and position changes in bed.
[2016-07-01] MEDS ORDERED: cloNIDine 0.1 mg Tablet PO SCH (20:30)
[2016-07-02 00:57] VITALS: BP 157/86; PULSE 80; RESP 18; O2SAT 96
[2016-07-02 05:21] LABS: BASOPHILS % (AUTO) 0.2 % (0-3); EOSINOPHILS % (AUTO) 0.3 % (0-5); MONOCYTES % (AUTO) 7.4 % (4-12); Mean Corpuscular Hemoglobin 28.9 pg (27.0-35.0); Mean Corpuscular Volume 84.8 fL (81-100); NEUTROPHILS % (AUTO) 74.5 % (40-74); Platelet Count 316 bil/L (150-400)
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
--- NOTE | 2016-07-02 05:36 | NUR ---
CIWA/Activity Pt monitored for CIWA/Benzo withdrawls. At start of shift CIWA 23; restless, large motor tremors, auditory hallucinations, anxious, and requesting to leave AMA. She states she "cannot even stand" due to tremors. Discussed new med changes and pt agreed to stay tonight and see if ativan and methadone are effective- they are, and she willingly uses bedside commode this shift. Very talkative about her this shift, she is openly discussing him picking her up and bringing her home. Room air, no SOB. On Tele, HR 140s with activity. Care continues
[2016-07-02 05:48] VITALS: BP 158/88; PULSE 81; RESP 16; O2SAT 97
[2016-07-02] MEDS: levoFLOXacin Inj 750 MG in IV Premix 1 EACH IV SCH (08:04)
[2016-07-02] MEDS ORDERED: cloNIDine 0.1 mg Tablet PO SCH (08:30)
--- NOTE | 2016-07-02 10:15 | NUR ---
Opiate Withdrawal Scale Pt has HR 107, dilated pupils, mild restlessness, GI cramps, tremor at rest for mild score of 8. Will continue to monitor q4hrs.
--- NOTE | 2016-07-02 11:38 | NUR ---
Evaluation completed. Please go to "Notes" then click on "Assessments and Notes" (bottom left corner of screen). Then select appropriate discipline tab on top of screen.
[2016-07-02 12:46] VITALS: BP 130/80; PULSE 92; RESP 17; O2SAT 99
--- NOTE | 2016-07-02 15:49 | PCM.DIMED ---
Discharge Instructions Date of Service Jul 02, 2016 Dates of Hospitalization Jun 27, 2016 at 13:13 Discharge Diagnosis Discharge Diagnosis Altered mental status due to pain medication over use, Drug dependence, HTN Medication Instructions Please continue methadone 10 mg PO BID until you see your provider. Follow up with your PCP Dr. Milan in one week Test Results Laboratory Tests Test 07/02/16 05:00 White Blood Count 18.1th/mm3 (3.8-10.1) Red Blood Count 5.06mil/mm3 (3.90-5.20) Hemoglobin 14.6g/dL (12.0-15.6) Hematocrit 42.9% (35.0-46.0) Mean Corpuscular Volume 84.8fL (81-100) Mean Corpuscular Hemoglobin 28.9pg (27.0-35.0) Mean Corpuscular Hemoglobin Concent 34.0% (32.0-37.0) Red Cell Distribution Width 14.7% (12.3-15.4) Platelet Count 316bil/L (150-400) Neutrophils (%) (Auto) 74.5% (40-74) Lymphocytes (%) (Auto) 17.1% (14-46) Monocytes (%) (Auto) 7.4% (4-12) Eosinophils (%) (Auto) 0.3% (0-5) Basophils (%) (Auto) 0.2% (0-3) Sodium Level 143mEq/L (134-144) Potassium Level 3.7mEq/L (3.5-5.2) Chloride Level 108mEq/L (97-108) Carbon Dioxide Level 19mmol/L (18-29) Blood Urea Nitrogen 14mg/dL (8-27) Creatinine 0.74mg/dL (0.57-1.00) Estimat Glomerular Filtration Rate 114mL/min (>59) Glucose Level 96mg/dL (60-99) Calcium Level 8.3mg/dL (8.5-10.1) Total Bilirubin 0.3mg/dL (0.0-1.2) Aspartate Amino Transf (AST/SGOT) 38U/L (0-50) Alanine Aminotransferase (ALT/SGPT) 34U/L (0-32) Alkaline Phosphatase 344U/L (25-165) Total Protein 5.8g/dL (6.4-8.4) Albumin 3.1g/dL (3.4-5.0) Microbiology 06/30/16 C. difficile DNA Amplification - Final, Complete 06/30/16 Streptococcus pneumoniae Ag Screen - Final, Complete Diet Heart Healthy Activity No restrictions, Limited until seen by PCP, Home Health Phyical Therapy, Outpatient Physical Therapy Call your provider Fever or Chills, Shortness of breath, Bleeding, Chest pain, Vomitting, Excessive diarrhea, Weakness (unilateral) Patient Instructions Follow-up plan Please use methadone 10 mg PO BID in stead of your previous dose Please use clonidine 0.2 mg PO BID in stead of your previous dose Take Levaquin PO for 5 days Take priobiotics like yogurt with your diet. Follow-up with PCP in: 1 week Juliet Phillips DO Jul 02, 2016 15:49
[2016-07-02] MEDS ORDERED: METH5TAB3 PO (15:52)
[2016-07-02] MEDS ORDERED: CLON0.1T14 PO (15:52)
[2016-07-02] MEDS ORDERED: LORA1TAB PO (15:53)
[2016-07-02] MEDS ORDERED: LEVO750T9 PO (15:56)
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
--- NOTE | 2016-07-02 16:12 | NUR ---
Social Work- Readiness for Discharge and Chemical Dependency Assessment Data: EMR reviewed. Pt is on day 5 of hospitalization for altered mental status. Pt is medically stable, anticipate discharge later today. SW spoke with pt at bedside regarding discharge and narcotic use. Pt to discharge home with brother or to transport. Pt states she is comfortable with her coming to pick her up if necessary. No anticipated discharge needs. SW will continue to follow. Assessment: Pt who is independent at base. Plan: Pt to discharge home with family to transport via POV. No anticipated discharge needs. Chemical Dependency Assessment Current Circumstances/Reason for Referral: Pt is a 65 year old female admitted for altered mental status secondary to polypharmacy per H&P. Per chart review, pt takes multiple medications for her complex regional pain syndrome. SW spoke with pt at bedside to complete assessment and offer resources. History of Substance Use: Pt reports using various pain medications since August of 1998 after she experienced a traumatic horseback riding injury. She has been in the care of multiple pain clinics and continues to follow up with her PCP regarding her pain management. She has a pain contract. Pt has had 3 spinal stimulators placed to address her pain, all were relatively ineffective. In 2016, pt decreased her med use significantly as she felt it was too many medications. Pt uses methadone as part of her pain management regimen. This began while she was in the care of [facility]. Pt states she has never run out of pain medication before her prescription ran out. Pt states she has never bought pain medication from an unauthorized provider. Pt states she has never intentionally taken her pain medication incorrectly. Pt declined resources as she does not abuse pain medication. History of Treatment Programs: Pt has never been in treatment for opiate or narcotic abuse. History of Withdrawal Symptoms:Pt experienced withdrawal while hospitalized. Pt reports nausea, vomiting, dry heaving, and extreme tremors. Family History: Pt has no family members with opiate abuse or IV drug use. Pt's uncle () drank heavily, as do her cousins. History of Sobriety and Supports: Pt's family including her brother is a good support for her. Patients Perception of use Contemplating change? Pt does not currently have an opiate/narcotic abuse problem. Pt states she would like her pain to be better managed on fewer medications, if possible. Suicide Risk assessment (If high suicide risk, Pt may require Mental health evaluation): Pt denies suicidality. Recommendations for referral and follow up: Pt has a follow up appointment with her pain clinic on July 31. MALIK Bran
[2016-07-02] MEDS ORDERED: Sodium Chloride LOK Flush 10 mL Syringe IVFLUSH SCH (16:30)
--- NOTE | 2016-07-02 17:15 | NUR ---
Discharge Pt DC'ing home with at 1720. Confirmed with pt and MD that this was the plan; pt states she feels safe going home at this time and has resources if she needs them. Pain in currently poorly controlled and rated a 8/10 but pt understands that she was overusing her pain medications and cannot resume that regimen despite chronic pain. Highlighted which medications she was to stop and which doses needed to be adjusted, pt understands and can teach this back to me. Pt states she is back to her baseline mobility despite using furniture to help with ambulation. Pt is eager to go home at this time and will follow up with Dr. Milan in one week.
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
== END 2016-07-02 17:17 | disposition home or self-care (01) | DRG 917 ==
LOC: SED 06:31 → OSC 13:13 → OBSVTOIN 13:13
PROVIDERS: ADMIT Neuromusculoskeletal Medicine & OMM; ATTEND Neuromusculoskeletal Medicine & OMM
DX: T40.4X1A Poisoning by other synthetic narcotics, accidental (unintentional), initial encounter (principal); G92 Toxic encephalopathy; J18.9 Pneumonia, unspecified organism; F11.23 Opioid dependence with withdrawal; G90.59 Complex regional pain syndrome I of other specified site; T40.2X1A Poisoning by other opioids, accidental (unintentional), initial encounter; F41.1 Generalized anxiety disorder; E03.9 Hypothyroidism, unspecified; I10 Essential (primary) hypertension; E87.6 Hypokalemia; R13.0 Aphagia; Z96.89 Presence of other specified functional implants; Y92.009 Unspecified place in unspecified non-institutional (private) residence as the place of occurrence of the external cause